=== PATIENT | male | born 1975 | race Caucasian/White ===

== ENCOUNTER → 2021-01-16 16:29 | Outpatient (CLI) | payer OTHER, SELFPAY ==
--- NOTE | ~2021-01-16 | XR_ITS ---
XR abdomen/kub 1V 01/16/2021 16:42 INDICATION: Left flank pain TECHNIQUE: KUB COMPARISON: None FINDINGS: Bowel gas pattern is normal. Moderate colonic fecal loading. Calcifications in the pelvis a re believed to be phleboliths. There is no evidence of free air, mass, organomegaly, ascites or obstr uction. No abnormal calculi are seen. The bones appear intact. IMPRESSION: 1: No acute abdominal abnormality identified. Reviewed, dictated and finalized at location A. T SERVICES ATTENDANT
== END ==
PROVIDERS: Visit Provider Urology
DX: R10.9 Unspecified abdominal pain (principal)
CPT/HCPCS: 74018